=== PATIENT | male | born 2005 | race Caucasian/White ===

== ENCOUNTER 2023-09-01 17:47 | Emergency (ER) | payer MEDICAID ==
[~2023-09-01] VITALS: Ht 172.7 cm; Wt 65.0 kg
[2023-09-01 18:00] VITALS: O2SAT 98
[2023-09-01 20:29] LABS: HEMATOCRIT. 43.4 % (42.0-52.0); HEMOGLOBIN. 14.5 g/dL (14.0-18.0); MEAN CORPUSCULAR HEMOGLOBIN 29.2 pg (28.0-32.0); MEAN CORPUSCULAR HGB CONC 33.3 g/dL (31.0-37.0); MEAN CORPUSCULAR VOLUME 87.6 fL (80.0-94.0); MEAN PLATELET VOLUME 8.5 fl (7.4-10.4); PLATELET 255 x1000/uL (130-400); RED BLOOD CELL COUNT 4.95 mill/uL (4.7-6.1); RED CELL DISTRIBUTION WIDTH 13.1 % (11.6-14.6); WHITE BLOOD COUNT 13.3 x1000/uL (4.5-11.0)
[2023-09-01 20:30] LABS: DIFFERENTIAL COMMENT 1
[2023-09-01 20:42] LABS: *AMPHETAMINES SCREEN URINE NEGATIVE (NEGATIVE); *BARBITURATES SCREEN URINE NEGATIVE (NEGATIVE); *BENZODIAZEPINES SCREEN URINE PRESUMPTIVE POSITIVE (NEGATIVE); *COCAINE SCREEN URINE NEGATIVE (NEGATIVE); CANNABINOID URINE SCREEN PRESUMPTIVE POSITIVE (NEGATIVE); ECSTASY MDMA SCREEN URINE NEGATIVE (NEGATIVE); METHADONE URINE SCREEN Neg (NEGATIVE); OPIATES URINE SCREEN NEGATIVE (NEGATIVE); PHENCYCLIDINE URINE SCREEN NEGATIVE (NEGATIVE)
[2023-09-01 20:44] LABS: ACETAMINOPHEN < 2 ug/mL (10-30); ALANINE AMINOTRANSFERASE 32 IU/L (10-49); ASPARTATE AMINOTRANSFERASE 82 IU/L (<34); BILIRUBIN TOTAL 0.7 mg/dL (0.1-1.0); CALCIUM 9.8 mg/dL (8.7-10.4); CARBON DIOXIDE 23 mEq/L (21-32); CHLORIDE 103 mEq/L (98-107); CREATININE 0.9 mg/dL (0.6-1.3); GLUCOSE 79 mg/dL (70-105); POTASSIUM 3.9 mEq/L (3.5-5.1); SODIUM 140 mEq/L (136-145); UREA NITROGEN BLOOD 6 mg/dL (9-23)
[2023-09-01 20:46] LABS: CLARITY URINE CLEAR (CLEAR); COLOR URINE YELLOW (YELLOW); GLUCOSE URINE NEGATIVE (NEGATIVE); KETONES URINE 4+ (NEGATIVE); LEUKOCYTE ESTERASE URINE NEGATIVE (NEGATIVE); NITRITE URINE NEGATIVE (NEGATIVE); OCCULT BLOOD URINE NEGATIVE (NEGATIVE); PH URINE 5.5 (4.5-8.0); PROTEIN URINE NEGATIVE (NEGATIVE)
[2023-09-01 20:47] LABS: ETHANOL BLOOD < 10 mg/dL (<10)
[2023-09-01 22:01] LABS: PLATELET ESTIMATE NORMAL
[2023-09-02] MEDS ORDERED: SODIUM CHLORIDE 0.9% 500 ML IV ONE
[2023-09-02] MEDS ORDERED: SODIUM CHLORIDE 0.9% 1,000 ML IV ONE
[2023-09-02 10:06] VITALS: BP 128/88; PULSE 108; RESP 16; TEMP 98.2
== END 2023-09-02 13:07 ==
LOC: ER 17:47
DX: R00.0 Tachycardia, unspecified (principal); R45.851 Suicidal ideations; F12.10 Cannabis abuse, uncomplicated; Z20.822 Contact with and (suspected) exposure to COVID-19
CPT/HCPCS: 80053; 80305; 81003; 80307; 80329; 80320; 85025; 36415; 99285; 87426; 83605; 87040; 93005; C9803; J7040; J7030; G0480